=== PATIENT | female | born 1975 | race Caucasian/White ===

== ENCOUNTER → 2020-07-18 | Day surgery (SDC) | payer OTHER ==
[~2020-07-18] MED LIST: Lactated Ringers 1,000 ML IV SCH; Lidocaine 1% 4 ML ONE; Lidocaine 1%/Sod Bicarbonate in NS 8.4% 1 ML Syringe IDERM PRN; Propofol 200 MG/20 ML SDV ONE; Sodium Chloride 0.9% 10 ML Syringe FLUSH PRN
--- NOTE | 2020-07-18 07:54 | PCM.PREANE ---
Preanesthetic Assessment - Procedure Proposed Procedure: EGD and colonoscopy - Anesthesia/Transfusion/Family Hx Anesthesia History: Prior Anesthesia Without Reaction Family History of Anesthesia Reaction: No Transfusion History: No Prior Transfusion(s) Intubation History: Unknown - Review of Systems General: No Symptoms Pulmonary: Other (GABBY- according to ) Cardiovascular: No Symptoms Gastrointestinal: Constipation, Diarrhea Neurological: No Symptoms Other: Reports: Depression - Physical Assessment NPO Status Date: 07/17/20 NPO Status Time: 23:30 Height: 1.63 m Weight: 113 kg ASA Class: 3 Mental Status: Alert & Oriented x3 Airway Class: Mallampati = 1 Dentition: Reports: Normal Dentition Thyro-Mental Finger Breadths: 3 Mouth Opening Finger Breadths: 5 ROM/Head Extension: Full Lungs: Clear to Auscultation, Normal Respiratory Effort Cardiovascular: Regular Rate, Regular Rhythm - Lab Values: Laboratory Last Values SARS-CoV-2 (PCR) Not detected (NOT DETECT) 07/14/20 10:30 - Allergies Allergies/Adverse Reactions: Allergies Allergy/AdvReac Type Severity Reaction Status Date / Time acetaminophen [From Vicodin] Allergy Cannot Verified 07/15/20 15:52 Remember cephalexin Allergy Hives Verified 07/15/20 15:52 chlorhexidine Allergy Rash Verified 07/15/20 15:52 hydrocodone [From Vicodin] Allergy Cannot Verified 07/15/20 15:52 Remember Penicillins Allergy Hives Verified 07/15/20 15:52 shellfish derived AdvReac Diarrhea Verified 07/15/20 16:20 - Blood Blood Available: No - Anesthesia Plan Pre-Op Medication Ordered: None - Acknowledgements Anesthesia Type Planned: MAC Pt an Appropriate Candidate for the Planned Anesthesia: Yes Alternatives and Risks of Anesthesia Discussed w Pt/Guardian: Yes Pt/Guardian Understands and Agrees with Anesthesia Plan: Yes PreAnesthesia Questionnaire HEENT History: Reports: Impaired Vision, Other (See Below) Other HEENT History: WEARS GLASSES Respiratory History: Reports: Sleep Apnea Gastrointestinal History: Reports: None Genitourinary History: Reports: None TIE SAWYER History: Reports: Other (See Below) Other OB/BYN History: BILATERAL OOPHORECTOMY, BILATERAL MASECTOMY, BREAST LUMPECTOMY Musculoskeletal History: Reports: None Neurological History: Reports: None Psychiatric History: Reports: Depression Endocrine/Metabolic History: Reports: None Hematologic History: Reports: None Immunologic History: Reports: None Oncologic (Cancer) History: Reports: Breast Dermatologic History: Reports: Other (See Below) Other Dermatologic History: EXCESSIVE HAIR GROWTH - Past Surgical History Head Surgeries/Procedures: Reports: None Cardiovascular Surgical History: Reports: None Respiratory Surgical History: Reports: None GI Surgical History: Reports: None Female Surgical History: Reports: Breast Reconstruction, Oophorectomy Endocrine Surgical History: Reports: Other (See Below) Other Endocrine Surgeries/Procedures: THYROID BIOPSIES Neurological Surgical History: Reports: None Musculoskeletal Surgical History: Reports: None Oncologic Surgical History: Reports: Mastectomy Dermatological Surgical History: Reports: None - SUBSTANCE USE Smoking Status *Q: Never Smoker Recreational Drug Use History: No - HOME MEDS Home Medications: Home Meds Calcium Carb/Vitamin D3/Vit K1 [Calcium + D Soft Chewable Tab] 1 tab PO DAILY 07/15/20 [History] Cholecalciferol (Vitamin D3) [Vitamin D3] 2,000 unit PO DAILY 07/15/20 [History] Ibuprofen 200 - 400 mg PO BEDTIME PRN 07/15/20 [History] Multivitamin [Daily Anthony] 1 tab PO DAILY 07/15/20 [History] Sertraline [Zoloft] 50 mg PO DAILY 07/15/20 [History] - CURRENT (IN HOUSE) MEDS Current Meds: Current Medications Lactated Ringer's (Ringers, Lactated) 1,000 mls @ 125 mls/hr IV ASDIRECTED SUZAN Stop: 07/18/20 23:00 Lidocaine/Sodium Bicarbonate (Buffered Lidocaine 1% In Ns 8.4%) 0.25 ml IDERM ONETIME PRN PRN Reason: Prior to IV Start Stop: 07/18/20 18:00 Sodium Chloride (Saline Flush) 10 ml FLUSH ASDIRECTED PRN PRN Reason: Keep Vein Open Stop: 07/18/20 18:00 Discontinued Medications Lidocaine HCl (Xylocaine-Mpf 1%) Confirm Administered Dose 4 mls @ as directed . ROUTE .STK-MED ONE Stop: 07/18/20 07:29 Propofol (Diprivan 20 Ml) Confirm Administered Dose 400 mg .ROUTE .STK-MED ONE Stop: 07/18/20 07:27
--- NOTE | 2020-07-18 09:17 | PCM48HPAN ---
Post Anesthesia Note - EVALUATION WITHIN 48HRS OF ANESTHETIC Vital Signs in Normal Range: Yes Patient Participated in Evaluation: Yes Respiratory Function Stable: Yes Airway Patent: Yes Cardiovascular Function Stable: Yes Hydration Status Stable: Yes Pain Control Satisfactory: Yes Nausea and Vomiting Control Satisfactory: Yes Mental Status Recovered: Yes Vital Signs: Last Vital Signs Temp 36.7 C 07/18/20 07:15 Pulse 79 07/18/20 07:15 Resp 16 07/18/20 07:15 BP 125/75 07/18/20 07:15 Pulse Ox 93 L 07/18/20 07:15
--- NOTE | 2020-07-18 11:07 | PROC ---
DATE OF OPERATION: 07/18/2020 SURGEON: Karissa Cobb MD PREOPERATIVE DIAGNOSES: 1. Abdominal pain. 2. Change in bowel habits. 3. Heartburn. POSTOPERATIVE DIAGNOSES: 1. Scarring at the gastroesophageal junction. Biopsied. 2. Localized gastritis in the antrum. Biopsied. 3. Normal colon. ANESTHESIA: Monitored anesthesia care. POSTOPERATIVE COMPLICATIONS: None. INDICATIONS AND CONSENT: The patient is a 45-year-old female who presented to clinic with complaints of change in bowel habits. The patient used to have normal bowel habits, but about 6 months ago, she started having some constipation alternating with diarrhea. The patient also reports that when she has constipation, she has some tenderness in the left lower quadrant, but this has been present for several years. She also does report occasional heartburn. She takes nothing for this because it does not cause too severe symptoms. Because of change in bowel habits, we recommended proceeding with EGD and colonoscopy for exam. We discussed with the patient risks, benefits, and alternatives, and informed consent was obtained. DESCRIPTION OF PROCEDURE: The patient was taken to the procedure room and placed in left lateral decubitus position. Time-out was performed, and then monitored anesthesia care was induced. Then, a scope was advanced through the mouth, into the stomach, then the second portion of the duodenum. The duodenum was normal. The antrum had localized areas of inflammation. These areas appeared to have superficial erosions. Biopsies were taken. These were at the very end of the antrum, in the prepyloric area. Then, on retroflexion, there was no hiatal hernia or any other abnormalities. The scope was taken back to the esophagus. The GE junction appeared to be scarred. Biopsies were taken. There was no visible inflammation in the distal esophagus or the rest of the esophagus. At this point, air was suctioned out, and the EGD procedure was concluded. Then, we turned our attention to colonoscopy. Perianal and digital rectal examinations were normal. The scope was placed and advanced all the way to the cecum. The ileocecal valve was photographed as well as appendiceal orifice and the cecum. There were no abnormalities in the cecum or ascending colon. Random biopsies therefore were taken from the cecum, ascending colon, transverse colon, sigmoid colon, and the rectum. There were no other abnormalities throughout the colon. On retroflexion, the rectum was normal. Air was suctioned out, and the colonoscopy was concluded. EBL was minimal. All biopsies were taken with cold forceps. The patient then was awoken from anesthesia and taken to the PACU. She was in stable condition. She will follow up with Alexa Rob for postop discussion of pathology results in 1 week. YEHUDA /[id number] JAY
== END | disposition home or self-care (01) ==
LOC: JD.SDS 07:10
PROVIDERS: ATTEND Surgery
DX: K29.70 Gastritis, unspecified, without bleeding (principal); K59.00 Constipation, unspecified; G47.30 Sleep apnea, unspecified; F32.9 Major depressive disorder, single episode, unspecified; Z01.812 Encounter for preprocedural laboratory examination; Z20.828 Contact with and (suspected) exposure to other viral communicable diseases; Z88.0 Allergy status to penicillin; Z88.6 Allergy status to analgesic agent; Z91.013 Allergy to seafood; Z88.5 Allergy status to narcotic agent; Z79.899 Other long term (current) drug therapy
CPT/HCPCS: 43239; 45380; 87635; J2001; J2704; J7120; 00813; U0002

== ENCOUNTER 2021-08-16 06:32 | Day surgery (SDC) | payer OTHER ==
--- NOTE | 2021-08-16 04:58 | PCM.OPNOTE ---
- General Post-Op/Procedure Note Date of Surgery/Procedure: 08/16/21 Operative Procedure(s): Diagnostic hysteroscopy. Dilation and curettage Findings: Hysteroscopy with slightly thickened uterine lining. Small polyp noted. Pre Op Diagnosis: Surgical menopause. Postmenopausal vaginal bleeding Post-Op Diagnosis: Same Anesthesia Technique: MAC Primary Surgeon: Bonnie Vazquez Anesthesia Provider: Mook Romero Pathology: Uterine curettings sent Fluid Replacement, Intraop: 600 Output, Urine Amount: 0 EBL in mLs: 10 Complications: None Condition: Good Free Text/Narrative:: The risks, benefits, indications, potential complications, and alternatives were explained to the patient and informed consent obtained. Patient was brought to the OR where anesthesia was induced without difficulty. She was placed in the dorsal lithotomy position and prepped and draped in the typical fashion. Sterile speculum placed in the vagina. Cervix was visualized. Very narrow space at top of vaginal making it difficult to open speculum widely. Paracervical block performed with approximately 10 cc of 1% lidocaine. Tenaculum placed on the anterior lip of the cervix. The cervix was then sequentially dilated to a #8 Hegar dilator to accommodate a 6-mm hysteroscope. A 6-mm hysteroscope was then introduced under direct visualization and the uterus was distended. Findings as above. The hysteroscope was then withdrawn and sharp curettage performed with care to sample all surfaces of uterine mesa. Tenaculum removed and sites appeared hemostatic. Patient tolerated procedure well. Taken to Recovery
[~2021-08-16 06:32] MED LIST changes: -Lidocaine 1% 4 ML ONE; -Propofol 200 MG/20 ML SDV ONE
[2021-08-16] MEDS ORDERED: Propofol 200 MG/20 ML SDV ONE (06:53)
[2021-08-16] MEDS ORDERED: Midazolam 1 MG/ML 2 ML SDV ONE (06:53)
[2021-08-16] MEDS ORDERED: Lidocaine 1% 4 ML ONE (06:53)
[2021-08-16] MEDS ORDERED: fentaNYL 250 MCG/5 ML SDV ONE (06:54)
[2021-08-16] MEDS ORDERED: Ketamine 500 mg/10 ML MDV ONE (06:56)
--- NOTE | 2021-08-16 07:10 | PCM.PREANE ---
Preanesthetic Assessment - Procedure Proposed Procedure: hysteroscopy and d and c - Anesthesia/Transfusion/Family Hx Anesthesia History: Prior Anesthesia Without Reaction Family History of Anesthesia Reaction: No Transfusion History: No Prior Transfusion(s) Intubation History: Unknown - Review of Systems General: No Symptoms Pulmonary: No Symptoms Cardiovascular: No Symptoms Gastrointestinal: Abdominal Pain (3 years) Neurological: No Symptoms Other: Reports: Diabetes (manage with food), Liver Problems (fatty liver), Thyroid Problems (node but no issues), Sinus Problem (allergies), Depression, Anxiety - Physical Assessment NPO Status Date: 08/15/21 NPO Status Time: 23:30 Vital Signs: 142/94 67 95% 18 97.8 Height: 5 ft 4 in Weight: 107 kg ASA Class: 3 Mental Status: Alert & Oriented x3 Airway Class: Mallampati = 1 Dentition: Reports: Normal Dentition Thyro-Mental Finger Breadths: 3 Mouth Opening Finger Breadths: 3 ROM/Head Extension: Full Lungs: Clear to Auscultation, Normal Respiratory Effort Cardiovascular: Regular Rate, Regular Rhythm - Allergies Allergies/Adverse Reactions: Allergies Allergy/AdvReac Type Severity Reaction Status Date / Time cephalexin Allergy Hives Verified 08/15/21 13:04 chlorhexidine Allergy Rash Verified 08/15/21 13:04 guaifenesin Allergy Cannot Verified 08/15/21 13:04 Remember hydrocodone Allergy Cannot Verified 08/15/21 13:04 Remember Penicillins Allergy Hives Verified 08/15/21 13:04 shellfish derived AdvReac Diarrhea Verified 08/15/21 13:04 - Blood Blood Available: No - Acknowledgements Anesthesia Type Planned: General Anesthesia, MAC Pt an Appropriate Candidate for the Planned Anesthesia: Yes Alternatives and Risks of Anesthesia Discussed w Pt/Guardian: Yes Pt/Guardian Understands and Agrees with Anesthesia Plan: Yes PreAnesthesia Questionnaire HEENT History: Reports: Impaired Vision, Other (See Below) Other HEENT History: WEARS GLASSES Cardiovascular History: Reports: None Respiratory History: Reports: Sleep Apnea, Other (See Below) Other Respiratory History: snoring Gastrointestinal History: Reports: GERD (light), Other (See Below) Other Gastrointestinal History: post op nausea and vomiting, fatty liver Genitourinary History: Reports: None COMFORT ADVISOR History: Reports: Other (See Below) Other OB/BYN History: BILATERAL OOPHORECTOMY, BILATERAL MASECTOMY, BREAST LUMPECTOMY Musculoskeletal History: Reports: None Neurological History: Reports: None Psychiatric History: Reports: Anxiety, Depression Endocrine/Metabolic History: Reports: Obesity/BMI 30+, Other (See Below) Other Endocrine/Metabolic History: excessive hair growth Hematologic History: Reports: None Immunologic History: Reports: None Oncologic (Cancer) History: Reports: Breast Dermatologic History: Reports: Other (See Below) Other Dermatologic History: EXCESSIVE HAIR GROWTH - Infectious Disease History Infectious Disease History: Reports: None - Past Surgical History Head Surgeries/Procedures: Reports: None Cardiovascular Surgical History: Reports: None Respiratory Surgical History: Reports: None GI Surgical History: Reports: Colonoscopy, EGD Female Surgical History: Reports: Breast Reconstruction, Oophorectomy Male Surgical History: Reports: None Endocrine Surgical History: Reports: Other (See Below) Other Endocrine Surgeries/Procedures: THYROID BIOPSIES Neurological Surgical History: Reports: None Musculoskeletal Surgical History: Reports: None Oncologic Surgical History: Reports: Mastectomy Dermatological Surgical History: Reports: None - SUBSTANCE USE Tobacco Use Status *Q: Never Tobacco User Tobacco Use Within Last Twelve Months: No Second Hand Smoke Exposure: No Days Per Week of Alcohol Use: 0 Recreational Drug Use History: No - HOME MEDS Home Medications: Home Meds Calcium Carb/Vitamin D3/Vit K1 [Calcium + D Soft Chewable Tab] 1 tab PO DAILY 07/15/20 [History] Cholecalciferol (Vitamin D3) [Vitamin D3] 2,000 unit PO DAILY 07/15/20 [History] Ibuprofen 200 - 400 mg PO BEDTIME PRN 07/15/20 [History] Multivitamin [Daily Anthony] 1 tab PO DAILY 07/15/20 [History] Sertraline [Zoloft] 50 mg PO DAILY 07/15/20 [History] EPINEPHrine [Epipen] 1 dose IM ASDIRECTED PRN 08/15/21 [History] Fluconazole [Diflucan] 100 mg PO DAILY 08/15/21 [History] Omeprazole Magnesium [Prilosec Otc] 20 mg PO DAILY 08/15/21 [History] Psyllium [Metamucil] 0.52 gm PO DAILY 08/15/21 [History] - CURRENT (IN HOUSE) MEDS Current Meds: Current Medications Lactated Ringer's (Ringers, Lactated) 1,000 mls @ 125 mls/hr IV ASDIRECTED SUZAN Stop: 08/16/21 23:00 Lidocaine/Sodium Bicarbonate (Lidocaine 1%/Sod Bicarbonate In Ns 8.4% 1 Ml Syringe) 0.25 ml IDERM ONETIME PRN PRN Reason: Prior to IV Start Stop: 08/16/21 23:00 Sodium Chloride (Sodium Chloride 0.9% 10 Ml Syringe) 10 ml FLUSH ASDIRECTED PRN PRN Reason: Keep Vein Open Stop: 08/16/21 23:00 Discontinued Medications Fentanyl (Fentanyl 250 Mcg/5 Ml Sdv) Confirm Administered Dose 250 mcg .ROUTE .STK-MED ONE Stop: 08/16/21 06:55 Lidocaine HCl (Xylocaine-Mpf 1%) Confirm Administered Dose 4 mls @ as directed .ROUTE .STK-MED ONE Stop: 08/16/21 06:54 Ketamine HCl (Ketamine 500 Mg/10 Ml Mdv) Confirm Administered Dose 500 mg .ROUTE .STK-MED ONE Stop: 08/16/21 06:57 Midazolam HCl (Midazolam 1 Mg/Ml 2 Ml Sdv) Confirm Administered Dose 2 mg .ROUTE .STK-MED ONE Stop: 08/16/21 06:54 Propofol (Propofol 200 Mg/20 Ml Sdv) Confirm Administered Dose 200 mg .ROUTE .STK-MED ONE Stop: 08/16/21 06:54
[2021-08-16] MEDS ORDERED: Lidocaine 1% with EPINEPHrine 1:100,000 10 ML MDV ONE (07:29)
[2021-08-16] MEDS ORDERED: Lidocaine 1% 30 ML SDV ONE (07:29)
--- NOTE | 2021-08-16 07:56 | PCM48HPAN ---
Post Anesthesia Note - EVALUATION WITHIN 48HRS OF ANESTHETIC Vital Signs in Normal Range: Yes Patient Participated in Evaluation: Yes Respiratory Function Stable: Yes Airway Patent: Yes Cardiovascular Function Stable: Yes Hydration Status Stable: Yes Pain Control Satisfactory: Yes Nausea and Vomiting Control Satisfactory: Yes Mental Status Recovered: Yes Vital Signs: Last Vital Signs Temp 36.6 C 08/16/21 06:50 Pulse 67 08/16/21 06:50 Resp 18 08/16/21 06:50 BP 142/94 H 08/16/21 06:50 Pulse Ox 95 08/16/21 06:50 - COMMENTS/OBSERVATIONS Free Text/Narrative:: no anesthesia complications noted
[2021-08-16] MEDS ORDERED: Ketorolac 30 MG/ML SDV IVPUSH ONE (09:00)
== END 2021-08-16 09:14 | disposition home or self-care (01) ==
LOC: JD.SDS 06:32
PROVIDERS: ATTEND Obstetrics & Gynecology
DX: N84.0 Polyp of corpus uteri (principal); N95.0 Postmenopausal bleeding; E11.9 Type 2 diabetes mellitus without complications; Z88.0 Allergy status to penicillin; Z88.8 Allergy status to other drugs, medicaments and biological substances; Z91.013 Allergy to seafood
CPT/HCPCS: 58558; J1885; J2250; J2704; J3010; J7120; 00952